=== PATIENT | male | born 1940 | race Two or more races ===

== ENCOUNTER 2024-03-27 00:41 | Emergency (ER) | payer OTHER ==
[~2024-03-27] VITALS: Ht 175.3 cm; Wt 99.8 kg
[~2024-03-27 00:41] MED LIST: ACCUNEB0.63 MG/3 IH; ANORO ELLIPTA1 EACH IH; ANTIVERT25 M2 PO; ASPIR 8181 MG; BUDESONIDE0.5 MG/2 M IH; CARVEDILOL ER40 MG; CARVEDILOL12.5 MG; CHILDREN'S ASPI81 MG; COZAAR100 MG; FLOVENT DISKU100 MCG; FLOVENT DISKU100 MCG IH; GLIMEPIRIDE2 MG; HYDRALAZINE HCL50 MG; LASIX20 MG; LEVALBUTER1.25 MG/3 IH; LEVAQUIN750 MG PO; LOZOL2.5 MG PO; MEDROLPACK PO; MOXIFLOXACIN H400 MG PO; MUCINEX DM ER1 EAC1 PO; NORVASC2.5 M1 PO; PLAVIX75 MG; PROTONIX40 M1; SIMETHICONE80 MG; SIMVASTATIN40 MG; SORBUGEN NR 15474 ML; TAMS0.4C; TENORMIN100 MG PO; VENTOLIN HFA18 GM IH
[2024-03-27] MEDS ORDERED: METHYLPREDNISOLONE SOD SUCC 125 MG VIAL IV STA (03:24)
[2024-03-27] MEDS ORDERED: ACETAMINOPHEN 500 MG GEL..CAP PO STA (03:25)
[2024-03-27] MEDS ORDERED: GUAIFENESIN 200 MG/10 ML BLIST.PACK PO STA (03:25)
[2024-03-27] MEDS ORDERED: LEVALBUTEROL HCL 0.63 MG/3 ML SOLUTION IH SCH (03:30)
[2024-03-27] MEDS ORDERED: GUAIFENESIN 200 MG/10 ML BLIST.PACK PO ONE (04:12)
[2024-03-27] MEDS ORDERED: ACETAMINOPHEN 500 MG GEL..CAP PO ONE (04:12)
[2024-03-27] MEDS ORDERED: METHYLPREDNISOLONE SOD SUCC 125 MG VIAL ONE (04:12)
[2024-03-27] MEDS ORDERED: LEVALBUTEROL HCL 0.63 MG/3 ML SOLUTION IH ONE (04:13)
[2024-03-27 04:30] LABS: HEMATOCRIT 29.8 % (39.0-48.0); MEAN CELL VOLUME 81.2 fL (80.0-100.00); MEAN CORPUSCULAR HEMOGLOBIN 26.7 pg (27.00-32.0); MEAN CORPUSCULAR HGB CONC 32.9 g/dl (32.0-36.0); PLATELET COUNT 223 K/uL (150-450); RED BLOOD COUNT 3.67 M/uL (4.00-6.00); RED CELL DISTRIBUTION WIDTH 17.3 % (11.5-14.5)
[2024-03-27 04:35] LABS: HEMOGLOBIN 9.8 g/dL (13-16.00)
[2024-03-27 04:44] LABS: INR 1.13; PARTIAL THROMBOPLASTIN TIME 30.8 SECONDS (22.0-34.0); PROTHROMBIN TIME 12.2 SECONDS (9.0-11.5)
[2024-03-27 04:47] LABS: ALBUMIN 3.8 gm/dL (3.4-5.0); BILIRUBIN TOTAL 1.29 mg/dL (0.3-1.2); CALCIUM 8.3 mg/dL (8.5-10.1); CREATININE SERUM 1.06 mg/dL (0.70-1.30); GFR 66.72; POTASSIUM 4.17 mEq/L (3.5-5.1); TOTAL PROTEIN 7.8 gm/dL (6.4-8.2)
[2024-03-27 06:17] LABS: PH,URINE 5.5 (5.0-8.0); URINE APPEARANCE Clear; URINE BILIRRUBIN Negative (NEGATIVE); URINE BLOOD Large; URINE COLOR Yellow; URINE GLUCOSE Negative (NEGATIVE); URINE KETONE Negative (NEGATIVE); URINE LEUKOCYTE Negative; URINE NITRATE Negative; URINE PROTEIN 30 (NEGATIVE)
[2024-03-27 06:22] LABS: URINE BACTERIA 128.5 uL (0.0-1933); URINE EPITHELIAL CELLS 8.2 uL (0.0-38.8); URINE RBC 159.8 uL (0.0-20.8); URINE WBC 10.4 uL (0.0-23.2)
[2024-03-27 06:28] LABS: ABG PH 7.422 (7.35-7.45); ABG PO2 78.2 mmHg (80-100); ABG pCO2 41.2 mmHg (35-45); BASE EXCESS 1.7 mmol/l; BICARBONATE 26.2 mmol/l (23-25); SaO2 95.8 %; Tco2 27.5 mmol/l; allen test SATISFACTORY; o2 21 %; puncture site RADIAL LEFT
[2024-03-27 06:57] LABS: URINE CAST 0.58 uL (0.0-1.40)
[2024-03-27] MEDS ORDERED: ZITHROMAX500 MG PO (08:11)
[2024-03-27] MEDS ORDERED: ZYNCOF 20-400120 ML PO (08:11)
[2024-03-27] MEDS ORDERED: BUDESONIDE0.5 MG/2 M IH (08:11)
[2024-03-27] MEDS ORDERED: LEVALBUTER0.63 MG/3 IH (08:11)
== END 2024-03-27 08:17 ==
LOC: ER 00:41
PROVIDERS: General Practice
DX: J10.1 Influenza due to other identified influenza virus with other respiratory manifestations (principal); Z20.822 Contact with and (suspected) exposure to COVID-19; E11.9 Type 2 diabetes mellitus without complications
CPT/HCPCS: 36415; 71045; 82803; 96365; 99283; J3490

== ENCOUNTER 2024-04-13 15:24 | Emergency (ER) | payer OTHER ==
[~2024-04-13] VITALS: Ht 175.3 cm; Wt 99.8 kg
[~2024-04-13 15:24] MED LIST changes: +LEVALBUTER0.63 MG/3 IH; +ZITHROMAX500 MG PO; +ZYNCOF 20-400120 ML PO
[2024-04-13] MEDS ORDERED: 0.9 % SODIUM CHLORIDE 1,000 ML IV STA (17:06)
[2024-04-13] MEDS ORDERED: IPRATROPIUM BROMIDE 0.5 MG/2.5 ML AMPUL.NEB IH STA (17:07)
[2024-04-13] MEDS ORDERED: LEVALBUTEROL HCL 1.25 MG/3 ML SOLUTION IH SCH (17:15)
[2024-04-13] MEDS ORDERED: BUDESONIDE 0.5 MG/2 ML AMPUL.NEB IH SCH (17:15)
[2024-04-13 18:50] LABS: HEMATOCRIT 34.9 % (39.0-48.0); HEMOGLOBIN 11.3 g/dL (13-16.00); MEAN CELL VOLUME 84.1 fL (80.0-100.00); MEAN CORPUSCULAR HEMOGLOBIN 27.4 pg (27.00-32.0); MEAN CORPUSCULAR HGB CONC 32.5 g/dl (32.0-36.0); PLATELET COUNT 261 K/uL (150-450); RED BLOOD COUNT 4.14 M/uL (4.00-6.00); RED CELL DISTRIBUTION WIDTH 20.9 % (11.5-14.5)
[2024-04-13 19:23] LABS: URINE APPEARANCE Cloudy; URINE BILIRRUBIN Negative (NEGATIVE); URINE BLOOD Large; URINE COLOR Dark Yellow; URINE GLUCOSE Negative (NEGATIVE); URINE KETONE Negative (NEGATIVE); URINE LEUKOCYTE Trace; URINE NITRATE Negative
[2024-04-13 19:24] LABS: ALBUMIN 4.2 gm/dL (3.4-5.0); BILIRUBIN TOTAL 2.49 mg/dL (0.3-1.2); CALCIUM 8.7 mg/dL (8.5-10.1); CREATININE SERUM 1.03 mg/dL (0.70-1.30); GFR 68.97; GLOBULINA 4.1 G/DL (2.4-3.5); POTASSIUM 3.9 mEq/L (3.5-5.1); TOTAL PROTEIN 8.3 gm/dL (6.4-8.2)
[2024-04-13 19:30] LABS: URINE BACTERIA 183.5 uL (0.0-1933); URINE EPITHELIAL CELLS 11.5 uL (0.0-38.8); URINE RBC 270.1 uL (0.0-20.8); URINE WBC 14.5 uL (0.0-23.2)
[2024-04-13 19:43] LABS: URINE CAST 0.44 uL (0.0-1.40); URINE PROTEIN 100 (NEGATIVE)
[2024-04-13 19:45] LABS: ABG PH 7.349 (7.35-7.45); ABG pCO2 51.4 mmHg (35-45); BASE EXCESS 1.1 mmol/l; BICARBONATE 27.7 mmol/l (23-25); SaO2 87.4 %; Tco2 29.2 mmol/l
[2024-04-13] MEDS ORDERED: METHYLPREDNISOLONE SOD SUCC 125 MG VIAL IV STA (19:51)
[2024-04-13 20:11] LABS: ABG PO2 56.5 mmHg (80-100); allen test SATISFACTORY; o2 21 %; puncture site RADIAL RIGHT
[2024-04-13] MEDS ORDERED: CEFTRIAXONE SODIUM 2,000 MG VIAL IV STA (20:22)
== END 2024-04-13 23:46 | disposition home or self-care (01) ==
LOC: ER 15:24
PROVIDERS: General Practice
DX: R53.81 Other malaise (principal); J44.1 Chronic obstructive pulmonary disease with (acute) exacerbation; Z20.822 Contact with and (suspected) exposure to COVID-19
CPT/HCPCS: 36415; 71046; 71250; 82803; 93005; 94640; 96365; 96366; 99284; J0696; J3490; J7030

== ENCOUNTER → 2024-05-19 | Emergency (ER) | payer OTHER ==
[~2024-05-19] VITALS: Ht 175.3 cm; Wt 97.5 kg
[~2024-05-19] MED LIST changes: +AVAPRO300 MG; +IPRATROPIUM/ALBUTEROL SULFATE 3 ML AMPUL.NEB IH ONE; +IPRATROPIUM/ALBUTEROL SULFATE 3 ML AMPUL.NEB IH SCH; +NORVASC2.5 M1; +ZOCOR40 MG
[2024-05-20 00:37] VITALS: BP 126/62; O2SAT 93
[2024-05-20 01:29] LABS: ABG PH 7.409 (7.35-7.45); ABG PO2 72.8 mmHg (80-100); BASE EXCESS 3.3 mmol/l; BICARBONATE 28.8 mmol/l (23-25); SaO2 94.7 %; Tco2 30.2 mmol/l
[2024-05-20 02:12] LABS: ALBUMIN 3.5 gm/dL (3.4-5.0); BILIRUBIN TOTAL 1.12 mg/dL (0.3-1.2); CALCIUM 8.2 mg/dL (8.5-10.1); CREATININE SERUM 1.07 mg/dL (0.70-1.30); GFR 65.84; GLOBULINA 3.2 G/DL (2.4-3.5); POTASSIUM 4.28 mEq/L (3.5-5.1); TOTAL PROTEIN 6.7 gm/dL (6.4-8.2)
[2024-05-20 02:40] LABS: COVID-19 AG NEGATIVE (NEGATIVE)
[2024-05-20 02:41] LABS: INFLUENZA A AG NEGATIVE (NEGATIVE)
[2024-05-20 02:45] LABS: HEMATOCRIT 28.8 % (39.0-48.0); HEMOGLOBIN 9.6 g/dL (13-16.00); MEAN CELL VOLUME 85.3 fL (80.0-100.00); MEAN CORPUSCULAR HEMOGLOBIN 28.3 pg (27.00-32.0); MEAN CORPUSCULAR HGB CONC 33.2 g/dl (32.0-36.0); PLATELET COUNT 283 K/uL (150-450); RED BLOOD COUNT 3.38 M/uL (4.00-6.00); RED CELL DISTRIBUTION WIDTH 17.5 % (11.5-14.5)
[2024-05-20 06:27] LABS: allen test SATISFACTORY; mode ROOM AIR; o2 21 %; puncture site RADIAL LEFT
[2024-05-20 06:28] LABS: ABG pCO2 46.6 mmHg (35-45)
== END | disposition home or self-care (01) ==
LOC: ER 22:11
DX: J06.9 Acute upper respiratory infection, unspecified (principal); R09.89 Other specified symptoms and signs involving the circulatory and respiratory systems; I51.7 Cardiomegaly; Z20.822 Contact with and (suspected) exposure to COVID-19; I10 Essential (primary) hypertension; E11.9 Type 2 diabetes mellitus without complications; Z79.84 Long term (current) use of oral hypoglycemic drugs